=== PATIENT | female | born 1950 | race Caucasian/White ===

== ENCOUNTER 2018-08-20 15:09 | Emergency (ER) | payer OTHER ==
--- NOTE | 2018-08-20 16:44 | CR ---
Chest: Portable view of the chest was obtained. Comparison: No prior study. Slight degenerative change is noted within the acromioclavicular joints. Mild scoliosis and mild degenerative change are scattered within the spine. Heart size is normal. Upper mediastinum is within normal limits. Lungs are clear with no acute parenchymal change. Impression: 1. Incidental findings. Nothing acute is appreciated on portable chest x-ray. Diagnostic code #2
--- NOTE | 2018-08-20 18:37 | EDM.PDOC ---
ED HPI GENERAL MEDICAL PROBLEM - General Chief Complaint: Chest Pain Stated Complaint: [facility] Time Seen by Provider: 08/20/18 17:44 Source of Information: Reports: Patient, RN Notes Reviewed History Limitations: Reports: No Limitations - History of Present Illness INITIAL COMMENTS - FREE TEXT/NARRATIVE: Patient is a 67-year-old female who presents to the ED via [facility] for the development of sudden on set chest pain. This patient is in the [facility]. The patient states that this feeling started around 2:30 this afternoon, she states that this was mid chest and it gave her the sensation that she felt like she needed to burp. She states that she does not have any history of chest pain prior to this but does note a history of hypertension. Upon presentation to the ED her pain has subsided and is now at a 1 out of 10. She was given 2 mg of morphine by IV in the ambulance and also 4 baby aspirin. She states that when the pain was present it shot directly back through her back in between her shoulder blades. The patient states that she ate lunch around 11:30 which consisted of a hamburger and fries and was fine, the patient was drinking coffee just prior to the onset of this episode. Treatments POST EXCHANGE MANAGER: Reports: Aspirin, EKG, IV/IO, See EMS Report, Other (see below) Other Treatments POST EXCHANGE MANAGER: morphine mid epigastric area Pain Score (Numeric/FACES): 1 - Related Data Allergies Allergy/AdvReac Type Severity Reaction Status Date / Time No Known Allergies Allergy Verified 08/20/18 15:31 Home Meds: Home Meds Aspirin 81 mg PO DAILY 08/20/18 [History] Cholecalciferol (Vitamin D3) [Vitamin D3] 2,000 unit PO DAILY 08/20/18 [History] Cyanocobalamin (Vitamin B12) [Cyanocobalamin] 1,000 mcg SL BEDTIME 08/20/18 [ History] Docusate Sodium [Colace] 100 mg PO DAILY 08/20/18 [History] Ferrous Sulfate [Feosol] 325 mg PO DAILY 08/20/18 [History] Furosemide [Lasix] 20 mg PO DAILY 08/20/18 [History] Lutein/Minerals/Vit A,C & E [I-Danika] 1 each PO DAILY 08/20/18 [History] Meloxicam [Mobic] 15 mg PO DAILY 08/20/18 [History] Pramipexole [Mirapex] 0.5 mg PO BEDTIME 08/20/18 [History] Prazosin HCl [Prazosin] 4 mg PO BEDTIME 08/20/18 [History] Sertraline [Zoloft] 150 mg PO 2015 08/20/18 [History] Simvastatin 10 mg PO BEDTIME 08/20/18 [History] amLODIPine Besylate [Amlodipine Besylate] 10 mg PO DAILY 08/20/18 [History] busPIRone [Buspar] 30 mg PO BEDTIME 08/20/18 [History] hydrOXYzine HCl [Atarax] 25 mg PO BID 08/20/18 [History] Past Medical History HEENT History: Reports: Impaired Vision Cardiovascular History: Reports: High Cholesterol, Hypertension, Other (See Below) Other Cardiovascular History: edema/leg swelling [employer]GER History: Reports: Psychiatric History: Reports: Anxiety, Dementia, Panic Attack, Suicide Attempt Other Psychiatric History: sleep disorder Endocrine/Metabolic History: Reports: Diabetes, Type II Other Endocrine/Metabolic History: diet controlled borderline type II diabetes Hematologic History: Reports: Anemia, B12 Deficiency Other Dermatologic History: dry skin - Past Surgical History GI Surgical History: Reports: Appendectomy, Bariatric Procedure Musculoskeletal Surgical History: Reports: Other (See Below) Other Musculoskeletal Surgeries/Procedures:: wrist surgery Social & Family History - Family History Family Medical History: Noncontributory - Tobacco Use Smoking Status *Q: Former Smoker Used Tobacco, but Quit: No - Caffeine Use Caffeine Use: Reports: Coffee - Recreational Drug Use Recreational Drug Use: No ED ROS GENERAL - Review of Systems Review Of Systems: See Below Constitutional: Reports: No Symptoms HEENT: Reports: No Symptoms Respiratory: Denies: Shortness of Breath, Cough, Sputum Cardiovascular: Reports: Chest Pain (mid chest pain) Endocrine: Reports: No Symptoms GI/Abdominal: Reports: No Symptoms : Reports: No Symptoms Musculoskeletal: Reports: No Symptoms Skin: Reports: No Symptoms Neurological: Reports: No Symptoms Psychiatric: Reports: No Symptoms Hematologic/Lymphatic: Reports: No Symptoms ED EXAM, GENERAL - Physical Exam Exam: See Below Exam Limited By: No Limitations General Appearance: Alert, WD/WN, No Apparent Distress Eye Exam: Bilateral Eye: Normal Inspection Ears: Normal External Exam Throat/Mouth: Normal Inspection, Normal Oropharynx, No Airway Compromise Head: Atraumatic, Normocephalic Neck: Normal Inspection Respiratory/Chest: No Respiratory Distress, Lungs Clear, Normal Breath Sounds, No Accessory Muscle Use, Chest Non-Tender Cardiovascular: Normal Peripheral Pulses, Regular Rate, Rhythm, No Murmur GI/Abdominal: Normal Bowel Sounds, Soft, Non-Tender, No Distention, No Mass Extremities: Normal Inspection, Normal Capillary Refill Neurological: Alert, Oriented, Normal Cognition, No Motor/Sensory Deficits Psychiatric: Normal Affect, Normal Mood Skin Exam: Warm, Dry, Intact, Normal Color, No Rash EKG INTERPRETATION EKG Date: 08/20/18 Time: 15:03 Rhythm: NSR Rate (Beats/Min): 64 [place]: LAD-Left [place] Deviation P-Wave: Present QRS: Normal ST-T: Normal QT: Normal EKG Interpretation Comments: Reviewed with Dr. Love. Course - Vital Signs Last Recorded V/S: Last Vital Signs Temp 97 F 08/20/18 15:10 Pulse 65 08/20/18 15:10 Resp 18 08/20/18 15:10 BP 176/75 H 08/20/18 15:10 Pulse Ox 100 08/20/18 15:10 - Orders/Labs/Meds Orders: Active Orders 24 hr Category Date Time Status EKG Documentation Completion [RC] ASDIRECTED Care 08/20/18 15:14 Active EKG 12 Lead [EK] Stat Ther 08/20/18 15:14 Ordered Labs: Laboratory Tests 08/20/18 08/20/18 08/20/18 Range/Units 16:00 16:00 16:00 WBC 6.45 (3.98-10.04) K/mm3 RBC 4.25 (3.98-5.22) M/mm3 Hgb 11.9 (11.2-15.7) gm/L Hct 36.7 (34.1-44.9) % MCV 86.4 (79.4-94.8) fl MCH 28.0 (25.6-32.2) pg MCHC 32.4 (32.2-35.5) g/dl RDW Std Deviation 52.1 H (36.4-46.3) fL Plt Count 217 (182-369) K/mm3 MPV 9.9 (9.4-12.3) fl Neut % (Auto) 51.0 (34.0-71.1) % Lymph % (Auto) 37.2 (19.3-51.7) % [place] % (Auto) 7.0 (4.7-12.5) % Eos % (Auto) 3.7 (0.7-5.8) Baso % (Auto) 0.9 (0.1-1.2) % Neut # (Auto) 3.29 (1.56-6.13) K/mm3 Lymph # (Auto) 2.40 (1.18-3.74) K/mm3 [place] # (Auto) 0.45 H (0.24-0.36) K/mm3 Eos # (Auto) 0.24 (0.04-0.36) K/mm3 Baso # (Auto) 0.06 (0.01-0.08) K/mm3 PT 10.7 (9.5-12.1) SECONDS INR 0.98 CK-MB (CK-2) 1.7 (0-3.6) ng/ml Troponin I < 0.017 (0.00-0.056) ng/mL Amylase 81 (25-115) U/L Lipase 268 (73-393) U/L Urine Color (Yellow) Urine Appearance (Clear) Urine pH (5.0-8.0) Ur Specific Platter (1.005-1.030) Urine Protein (Negative) Urine Glucose (UA) (Negative) Urine Ketones (Negative) Urine Occult Blood (Negative) Urine Nitrite (Negative) Urine Bilirubin (Negative) Urine Urobilinogen (0.2-1.0) Ur Leukocyte Esterase (Negative) Urine RBC (0-5) /hpf Urine WBC (0-5) /hpf Ur Epithelial Cells (0-5) /hpf Urine Bacteria (FEW) /hpf Urine Mucus (FEW) /hpf 08/20/18 Range/Units 16:49 WBC (3.98-10.04) K/mm3 RBC (3.98-5.22) M/mm3 Hgb (11.2-15.7) gm/L Hct (34.1-44.9) % MCV (79.4-94.8) fl MCH (25.6-32.2) pg MCHC (32.2-35.5) g/dl RDW Std Deviation (36.4-46.3) fL Plt Count (182-369) K/mm3 MPV (9.4-12.3) fl Neut % (Auto) (34.0-71.1) % Lymph % (Auto) (19.3-51.7) % [place] % (Auto) (4.7-12.5) % Eos % (Auto) (0.7-5.8) Baso % (Auto) (0.1-1.2) % Neut # (Auto) (1.56-6.13) K/mm3 Lymph # (Auto) (1.18-3.74) K/mm3 [place] # (Auto) (0.24-0.36) K/mm3 Eos # (Auto) (0.04-0.36) K/mm3 Baso # (Auto) (0.01-0.08) K/mm3 PT (9.5-12.1) SECONDS INR CK-MB (CK-2) (0-3.6) ng/ml Troponin I (0.00-0.056) ng/mL Amylase (25-115) U/L Lipase (73-393) U/L Urine Color Yellow (Yellow) Urine Appearance Clear (Clear) Urine pH 7.5 (5.0-8.0) Ur Specific Platter 1.015 (1.005-1.030) Urine Protein Negative (Negative) Urine Glucose (UA) Negative (Negative) Urine Ketones Negative (Negative) Urine Occult Blood Negative (Negative) Urine Nitrite Negative (Negative) Urine Bilirubin Negative (Negative) Urine Urobilinogen 0.2 (0.2-1.0) Ur Leukocyte Esterase Trace H (Negative) Urine RBC Not seen (0-5) /hpf Urine WBC 0-5 (0-5) /hpf Ur Epithelial Cells 0-5 (0-5) /hpf Urine Bacteria Rare (FEW) /hpf Urine Mucus Few (FEW) /hpf - Re-Assessments/Exams Free Text/Narrative Re-Assessment/Exam: 08/20/18 23:20 Patient presents to the ED for evaluation of midsternal chest pain with radiation to the back. Triage nurse did order EKG, chest x-ray, UA, troponin, amylase, lipase, CBC, CK-MB, INR/PT for evaluation of her symptoms. These all came back within normal limits. As her pain was not present in the ED upon initial exam I am unsure of the etiology of her pain although it is suspicious for possible esophageal spasm vs GERD type symptoms. She does not note a history of reflux or GERD. The patient denies any medication at this time as she states she is not in any pain. Have given general recommendations. Departure - Departure Time of Disposition: 18:32 Disposition: Home, Self-Care 01 Condition: Fair Clinical Impression: Chest pain Qualifiers: Chest pain type: other chest pain Qualified Code(s): R07.89 - Other chest pain Instructions: Nonspecific Chest Pain, [id number] Referrals: PCP,None [Primary Care Provider] - Forms: ED Department Discharge Additional Instructions: You have been evaluated in the ED for your chest pain. Your workup in the ED tonight suggests that you are not having a [place]. The pain you felt could likely be due to esophageal spasm however your symptoms subsided shortly after being brought to ED. And you are not feeling the pain at this time. The etiology of your pain is still unclear at this time. Please return to the ED if her symptoms change or worsen.
== END 2018-08-20 18:48 | disposition home or self-care (01) ==
LOC: JD.ED 15:09 → MERGE 15:09 → EDBD 15:09 → JD.ED 18:48
DX: R07.89 Other chest pain (principal); I10 Essential (primary) hypertension; E11.9 Type 2 diabetes mellitus without complications; F41.9 Anxiety disorder, unspecified; D64.9 Anemia, unspecified; F03.90 Unspecified dementia, unspecified severity, without behavioral disturbance, psychotic disturbance, mood disturbance, and anxiety; Z90.49 Acquired absence of other specified parts of digestive tract; Z98.84 Bariatric surgery status; Z87.891 Personal history of nicotine dependence; Z79.82 Long term (current) use of aspirin
CPT/HCPCS: 36415; 71045; 71045-26; 81001; 82150; 82553; 83690; 84484; 85025; 85610; 93005; 93010; 99284; 99285-25

== ENCOUNTER 2018-09-26 07:13 | Day surgery (SDC) | payer OTHER ==
[~2018-09-26 07:13] MED LIST: Lactated Ringers 1,000 ML IV SCH; Lidocaine 1%/Sod Bicarbonate in NS 8.4% 1 ML Syringe IDERM PRN; Sodium Chloride 0.9% 10 ML Syringe FLUSH PRN
[2018-09-26] MEDS ORDERED: Lidocaine 1% 4 ML ONE (07:29)
[2018-09-26] MEDS ORDERED: fentaNYL 100 MCG/2 ML SDV ONE (07:29)
[2018-09-26] MEDS ORDERED: Propofol 200 MG/20 ML SDV ONE (07:29)
--- NOTE | 2018-09-26 08:27 | PCM.OPNOTE ---
- General Post-Op/Procedure Note Date of Surgery/Procedure: 09/26/18 Operative Procedure(s): EGD with bx Pre Op Diagnosis: atympical chest pain Post-Op Diagnosis: Same Anesthesia Technique: MAC Primary Surgeon: Jordan Hilliard EBL in mLs: 0 Complications: None Condition: Good
--- NOTE | 2018-09-26 08:31 | PCM.PREANE ---
Preanesthetic Assessment - Anesthesia/Transfusion/Family Hx Anesthesia History: Prior Anesthesia Without Reaction Family History of Anesthesia Reaction: No Transfusion History: Prior Transfusion Without Reaction - Review of Systems General: No Symptoms Pulmonary: No Symptoms Cardiovascular: Chest Pain (Negative Stress Test on 09/23/2018, EKG SB with T inversion, No Chest Pain Today. Concerning for GI pain. ) Gastrointestinal: No Symptoms Neurological: No Symptoms Other: Reports: Depression (Overdose January of 2016, currently incarcerated. ), Anxiety - Physical Assessment NPO Status Date: 09/25/18 NPO Status Time: 21:00 O2 Sat by Pulse Oximetry: 98 Respiratory Rate: 14 Vital Signs: Last Vital Signs Temp 36.6 C 09/26/18 07:15 Pulse 58 L 09/26/18 07:15 Resp 14 09/26/18 07:15 BP 116/64 09/26/18 07:15 Pulse Ox 98 09/26/18 07:15 Height: 1.65 m Weight: 73.482 kg ASA Class: 2 Mental Status: Alert & Oriented x3 Airway Class: Mallampati = 1 Dentition: Reports: Dentures (Uppers) Thyro-Mental Finger Breadths: 2 Mouth Opening Finger Breadths: 3 ROM/Head Extension: Full Lungs: Clear to Auscultation, Normal Respiratory Effort Cardiovascular: Regular Rate, Regular Rhythm, Bradycardia - Allergies Allergies/Adverse Reactions: Allergies Allergy/AdvReac Type Severity Reaction Status Date / Time No Known Allergies Allergy Verified 09/25/18 14:00 - Acknowledgements Anesthesia Type Planned: MAC Pt an Appropriate Candidate for the Planned Anesthesia: Yes Alternatives and Risks of Anesthesia Discussed w Pt/Guardian: Yes Pt/Guardian Understands and Agrees with Anesthesia Plan: Yes PreAnesthesia Questionnaire HEENT History: Reports: Impaired Vision, Other (See Below) Other HEENT History: retinal occlusion Cardiovascular History: Reports: High Cholesterol, Hypertension, Other (See Below) Other Cardiovascular History: edema/leg swelling Respiratory History: Reports: Other (See Below) Other Respiratory History: moraxella catarrhalis pneumonia, intubated and ventilated Genitourinary History: Reports: Other (See Below) Other Genitourinary History: acute renal failure 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: Musculoskeletal History: Reports: Osteoarthritis, Other (See Below) Other Musculoskeletal History: restless leg syndrome, rotator cuff rupture Neurological History: Reports: Neuropathy, Peripheral, Other (See Below) Other Neuro History: amnesia Psychiatric History: Reports: Anxiety, Dementia, Depression, Panic Attack, Suicide Attempt Other Psychiatric History: sleep disorder Endocrine/Metabolic History: Reports: Diabetes, Type II Other Endocrine/Metabolic History: diet controlled borderline type II diabetes, vitamin b12 deficiency, adrenal failure Hematologic History: Reports: Anemia, B12 Deficiency, Other (See Below) Other Hematologic History: hemorrhagic shock Immunologic History: Reports: None Oncologic (Cancer) History: Reports: None Other Dermatologic History: dry skin - Past Surgical History Head Surgeries/Procedures: Reports: None Respiratory Surgical History: Reports: None GI Surgical History: Reports: Appendectomy, Bariatric Procedure Female Surgical History: Reports: Tubal Ligation Endocrine Surgical History: Reports: None Neurological Surgical History: Reports: None Musculoskeletal Surgical History: Reports: Other (See Below) Other Musculoskeletal Surgeries/Procedures:: wrist surgery , ankle surgery Oncologic Surgical History: Reports: None - SUBSTANCE USE Smoking Status *Q: Former Smoker Recreational Drug Use History: No - HOME MEDS Home Medications: Home Meds Aspirin 81 mg PO DAILY 08/20/18 [History] Cholecalciferol (Vitamin D3) [Vitamin D3] 2,000 unit PO DAILY 08/20/18 [History] Docusate Sodium [Colace] 200 mg PO BEDTIME 08/20/18 [History] Ferrous Sulfate [Feosol] 325 mg PO DAILY 08/20/18 [History] Furosemide [Lasix] 20 mg PO DAILY 08/20/18 [History] Meloxicam [Mobic] 15 mg PO DAILY 08/20/18 [History] Prazosin HCl [Prazosin] 4 mg PO BEDTIME 08/20/18 [History] Sertraline [Zoloft] 100 mg PO DAILY 08/20/18 [History] Simvastatin 10 mg PO BEDTIME 08/20/18 [History] amLODIPine Besylate [Amlodipine Besylate] 10 mg PO DAILY 08/20/18 [History] busPIRone [Buspar] 15 mg PO TID 08/20/18 [History] hydrOXYzine HCl [Atarax] 25 - 50 mg PO TID PRN 08/20/18 [History] Ca Carbonate/Vitamin D3/Vit K [Calcium + D Soft Chewable Tab] 1 tab PO BID 09/25 [History] Cyanocobalamin (Vitamin B-12) [Vitamin B-12] 1,000 mcg PO DAILY 09/25/18 [ History] Multivitamin [Daily Multiple Vitamin] 1 tab PO DAILY 09/25/18 [History] Potassium Chloride 40 meq PO DAILY 09/25/18 [History] Pramipexole [Mirapex] 0.25 mg PO BEDTIME 09/25/18 [History] - CURRENT (IN HOUSE) MEDS Current Meds: Current Medications Lactated Ringer's (Ringers, Lactated) 1,000 mls @ 125 mls/hr IV ASDIRECTED ZION Stop: 09/26/18 23:00 Last Admin: 09/26/18 07:40 Dose: 125 mls/hr Lidocaine/Sodium Bicarbonate (Buffered Lidocaine 1% In Ns 8.4%) 0.25 ml IDERM ONETIME PRN PRN Reason: Prior to IV Start Stop: 09/26/18 23:00 Last Admin: 09/26/18 07:39 Dose: 0.25 ml Sodium Chloride (Saline Flush) 10 ml FLUSH ASDIRECTED PRN PRN Reason: Keep Vein Open Stop: 09/26/18 23:00 Discontinued Medications Fentanyl (Sublimaze) Confirm Administered Dose 100 mcg .ROUTE .STK-MED ONE Stop: 09/26/18 07:30 Lidocaine HCl (Xylocaine-Mpf 1%) Confirm Administered Dose 4 mls @ as directed .ROUTE .STK-MED ONE Stop: 09/26/18 07:30 Propofol (Diprivan 20 Ml) Confirm Administered Dose 400 mg .ROUTE .STK-MED ONE Stop: 09/26/18 07:30
--- NOTE | 2018-09-26 08:32 | PCM48HPAN ---
Post Anesthesia Note - EVALUATION WITHIN 48HRS OF ANESTHETIC Vital Signs in Normal Range: Yes Patient Participated in Evaluation: Yes Respiratory Function Stable: Yes Airway Patent: Yes Cardiovascular Function Stable: Yes Hydration Status Stable: Yes Pain Control Satisfactory: Yes Nausea and Vomiting Control Satisfactory: Yes Mental Status Recovered: Yes Pulse Rate: 55 SaO2: 95 Resp Rate: 16 Temperature: 36.1 C Blood Pressure: 110/62
--- NOTE | 2018-09-27 08:22 | OR ---
DATE OF OPERATION: 09/26/2018 SURGEON: Jordan Hilliard MD PREOPERATIVE DIAGNOSIS: Atypical chest pain. POSTOPERATIVE DIAGNOSIS: Atypical chest pain. OPERATION PERFORMED: Esophagogastroduodenoscopy under IV sedation with biopsy. FINDINGS: Gastric bypass with gastrojejunostomy. 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 The gastrojejunostomy showed some telangiectasia along the edge and this was biopsied. The gastric pouch was viewed without any problem and there looked like there was creep of gastric mucosa above the GE junction for about 5 cm. Four-quadrant biopsies were taken below where the gastric mucosa met the esophageal mucosa and at the site where the gastric mucosa met the esophageal mucosa. DESCRIPTION OF PROCEDURE: The patient was taken to the operating room, placed in a supine position, connected to monitoring equipment, given IV sedation, placed in the left lateral position. Bite block was inserted. A video Olympus gastroscope was placed in the posterior oropharynx and threaded past the cricopharyngeus, down the esophagus, into the gastric pouch. One blind end of the jejunum was noted and the other functional end was free of any problem. However, there was some telangiectasia along the gastrojejunostomy and this was biopsied. The gastric pouch was unremarkable. Advanced to 40 cm where there was indentation suggesting that is where the anatomical GE junction should be, but seemed to be taken over by gastric mucosa about 5 cm, but the junction could be seen, which is irregular. This junction was biopsied and then gastric mucosa, but what was felt to be the GE junction was also biopsied. Four-quadrant biopsies were done. Esophageal diverticulum was noted. The patient tolerated the procedure. The biopsies were sent to pathology in a labeled container and as the scope was withdrawn, the rest of the esophagus viewed was normal. The patient tolerated the procedure and sent to the recovery room in stable condition, will be followed up in the clinic. ANESTHESIA: ESTIMATED BLOOD LOSS: MMODAL /[id number]
== END 2018-09-26 09:04 | disposition home or self-care (01) ==
LOC: JD.SDS 07:13 → EEVIPCON 08:00 → JD.SDS 09:04
PROVIDERS: ATTEND Surgery
DX: K28.9 Gastrojejunal ulcer, unspecified as acute or chronic, without hemorrhage or perforation (principal); I78.1 Nevus, non-neoplastic; K20.9 Esophagitis, unspecified; I10 Essential (primary) hypertension; E11.42 Type 2 diabetes mellitus with diabetic polyneuropathy; E78.00 Pure hypercholesterolemia, unspecified; Z87.891 Personal history of nicotine dependence; Z79.899 Other long term (current) drug therapy; Z98.84 Bariatric surgery status
CPT/HCPCS: 43239; J2001; J2704; J3010; J7120; 00731

== ENCOUNTER 2021-09-10 19:56 | Emergency (ER) | payer MEDICAID, OTHER ==
[2021-09-10] MEDS ORDERED: cefTRIAXone 2 GM in Sodium Chloride 0.9% 100 ML IV ONE (22:00)
== END 2021-09-11 02:45 ==
LOC: JD.ED 19:56
DX: N30.00 Acute cystitis without hematuria (principal); E78.00 Pure hypercholesterolemia, unspecified; I10 Essential (primary) hypertension; E11.43 Type 2 diabetes mellitus with diabetic autonomic (poly)neuropathy; Z79.82 Long term (current) use of aspirin; Z79.899 Other long term (current) drug therapy; Z87.891 Personal history of nicotine dependence; Z86.16 Personal history of COVID-19
CPT/HCPCS: 36415; 70450; 80053; 81001; 82947; 84484; 85025; 85379; 85610; 85730; 87086; 87088; 87186; 93005; 96365; 99284; J0696